=== PATIENT | female | born 1960 | race Caucasian/White ===

== ENCOUNTER → 2017-04-23 | Outpatient (CLI) | payer BC ==
[~2017-04-23] MED LIST: ASPI81TA28 PO; ATOR-22 PO; CLR/5 PO; FLUO20CA35 PO; LEVO175T PO
--- NOTE | 2017-04-24 07:25 | MAMMOGRAPHY REPORT ---
BILATERAL DIGITAL SCREENING MAMMOGRAM TOMOSYNTHESIS WITH CAD: 04/23/2017 CLINICAL HISTORY: Routine screening. Patient has no complaints. TECHNIQUE: Breast tomosynthesis in addition to standard 2D mammography was performed. Current study was also evaluated with a Computer Aided Detection (CAD) system. COMPARISON: Comparison is made to exams dated: 04/21/2016 mammogram, 08/14/2012 mammogram, 08/14/2011 mammogram, 08/10/2010 mammogram, 08/09/2009 mammogram, and 12/09/2003 mammogram - [facility]. BREAST COMPOSITION: There are scattered areas of fibroglandular density in both breasts. FINDINGS: There is a benign rim calcification in the superior right breast. No suspicious mass, arch itectural distortion or cluster of suspicious microcalcifications is seen. IMPRESSION: ACR BI-RADS CATEGORY 1: NEGATIVE There is no mammographic evidence of malignancy. A 1 year screening mammogram is recommended. The pa tient will receive written notification of the results. Approximately 10% of breast cancers are not detected with mammography. A negative mammographic report should not delay biopsy if a clinically suggestive mass is present. Shayy Jalloh M.D. ay/:04/23/2017 15:25:06 Director Camp: Cayla SAUCEDO(Leighton)([place]), [facility] letter sent: Normal 1/2 BI-RADS Code: ACR BI-RADS Category 1: Negative
== END | disposition home or self-care (01) ==
LOC: C.MAMM 13:16
PROVIDERS: ATTEND Internal Medicine
DX: Z12.31 Encounter for screening mammogram for malignant neoplasm of breast (principal)

== ENCOUNTER → 2017-06-13 | Outpatient (CLI) | payer BC ==
--- NOTE | 2017-06-13 10:34 | DIAGNOSTIC IMAGING REPORT ---
RIGHT WRIST 4 VIEWS HISTORY: Right wrist pain. COMPARISON: None. FINDINGS: There is no fracture or dislocation. Soft tissues are unremarkable. No radiopaque foreign bodies. IMPRESSION: No fractures. Electronically signed by: Celestine Palomo M.D. 06/13/2017 10:33 AM Dictated Date/Time: 06/13/2017 10:31 AM
== END | disposition home or self-care (01) ==
LOC: C.RAD1850 10:17
PROVIDERS: ATTEND Nurse Practitioner
DX: M25.531 Pain in right wrist (principal)

== ENCOUNTER → 2017-08-14 | Outpatient (CLI) | payer BC | END | disposition home or self-care (01) | LOC: C.CPL 13:33 | PROVIDERS: ATTEND Orthopaedic Surgery | DX: M65.4 Radial styloid tenosynovitis [de Quervain] (principal) ==